=== PATIENT | female | born 1995 | race Caucasian/White ===

== ENCOUNTER 2016-08-06 14:25 | Emergency (ER) | payer MEDICAID, OTHER ==
[~2016-08-06] VITALS: Ht 167.6 cm; Wt 56.0 kg
[~2016-08-06 14:25] MED LIST: ADVA115A INH; DULE200A INH; PULM90IN INH
[2016-08-06] MEDS ORDERED: SODIUM CHLOR 0.9% 1000 ML INJ 1,000 ML IV SCH (14:38)
[2016-08-06 14:40] VITALS: BP 140/96; PULSE 73; RESP 18; TEMP 98.1; O2SAT 100
[2016-08-06] MEDS ORDERED: ONDANSETRON HCL 4 MG/2 ML VIAL IVP ONE ×2 (14:45→16:45)
[2016-08-06] MEDS ORDERED: DICYCLOMINE HCL 10 MG CAP PO ONE (14:45)
[2016-08-06] MEDS ORDERED: FAMOTIDINE 20 MG/2 ML VIAL IV PUSH ONE (14:45)
--- NOTE | 2016-08-06 14:50 | PD ---
HPI Chief Complaint: GI Complaint Time Seen by Provider: 14:34 Travel History International Travel<30 days: No Contact w/Intl Traveler<30days: No History of Present Illness HPI Patient is a 21-year-old female who presents to emergency room with complaints of nausea vomiting diarrhea since 10 AM this morning. Patient reports that she woke up not feeling well, reports that she has not been able to keep any food or fluids down all day. Reports no sick contacts. Denies any recent travels/ trips. Reports that she has not been on any antibiotics recently. Reports that she has increased pain to her epigastrium from vomiting so much. Denies fevers , c/o of chills. Denies cough/congestion. Denies chest pain /sob. PFSH Past Medical History Asthma: Yes Diminished Hearing: No Immunizations Current: Yes : 1 : 1 Past Surgical History Surgical History: No Previous Surgery Social History Alcohol Use: Yes (OCCASIONALLY) Tobacco Use: Yes (1 PPD) Substance Use: Yes (MARIJUANA) Allergies-Medications (Allergen,Severity, Reaction): Coded Allergies: No Known Allergies (Verified , 08/06/16) Reported Meds & Prescriptions Reported Meds & Active Scripts Active Pepcid (Famotidine) 20 Mg Tab 20 Mg PO BID Bentyl (Dicyclomine HCl) 20 Mg Tab 20 Mg PO TID Zofran Odt (Ondansetron Odt) 4 Mg Tab 4 Mg SL Q6HR PRN Famotidine 20 Mg Tab 20 Mg PO BID Bentyl (Dicyclomine HCl) 20 Mg Tab 20 Mg PO TID Zofran Odt (Ondansetron Odt) 4 Mg Tab 4 Mg SL Q6HR PRN Pulmicort Flexhaler (Budesonide Powder Inh) 90 Mcg/Act Inhp 90 Mcg INH Q12HR Advair Hfa 12 GM Inh (Fluticasone-Salmeterol 12 GM Inh) 115-21 Mcg/Act Aer 2 Puff INH BID Reported Dulera 120 Act Inh (Mometasone-Formoterol 120 Act Inh) 200-5 Mcg/Act Inh 2 Puff INH BID Review of Systems General / Constitutional: Positive: Chills, No: Fever Eyes: No: Visual changes HENT: No: Headaches Cardiovascular: No: Chest Pain or Discomfort Respiratory: No: Shortness of Breath Gastrointestinal: Positive: Nausea, Vomiting, Diarrhea, Abdominal Pain, No: Constipation Genitourinary: No: Urgency, Frequency, Dysuria, Pelvic Pain, Flank Pain, Discharge Musculoskeletal: No: Pain Skin: No Rash Neurologic: No: Weakness Psychiatric: No: Depression Endocrine: No: Polydipsia Hematologic/Lymphatic: No: Easy Bruising Physical Exam Narrative GENERAL: mild distress SKIN: Warm and dry. HEAD: Atraumatic. Normocephalic. EYES: Pupils equal and round. No scleral icterus. No injection or drainage. ENT: No nasal bleeding or discharge. Mucous membranes pink and moist. NECK: Trachea midline. No JVD. CARDIOVASCULAR: Regular rate and rhythm. No murmur appreciated. RESPIRATORY: No accessory muscle use. Clear to auscultation. Breath sounds equal bilaterally. GASTROINTESTINAL: Abdomen soft, tenderness to epigastrium, nondistended. Hepatic and splenic margins not palpable. MUSCULOSKELETAL: No obvious deformities. No clubbing. No cyanosis. No edema. NEUROLOGICAL: Awake and alert. No obvious cranial nerve deficits. Motor grossly within normal limits. Normal speech. PSYCHIATRIC: anxious on exam Data Data Last Documented VS Vital Signs Date Time Temp Pulse Resp B/P Pulse Ox O2 Delivery O2 Flow Rate FiO2 08/06/16 17:00 75 16 115/65 98 Room Air 08/06/16 14:40 98.1 Orders Complete Blood Count With Diff (08/06/16 14:38) Comprehensive Metabolic Panel (08/06/16 14:38) Lipase (08/06/16 14:38) Prothrombin Time / Inr (Pt) (08/06/16 14:38) Act Partial Throm Time (Ptt) (08/06/16 14:38) Urinalysis - C+S If Indicated (08/06/16 14:38) Iv Access Insert/Monitor (08/06/16 14:38) Ondansetron Inj (Zofran Inj) (08/06/16 14:45) Sodium Chlor 0.9% 1000 Ml Inj (Ns 1000 M (08/06/16 14:38) Sodium Chloride 0.9% Flush (Ns Flush) (08/06/16 14:45) Famotidine Inj (Pepcid Inj) (08/06/16 14:45) Dicyclomine (Bentyl) (08/06/16 14:45) Ed Urine Pregnancytest Poc (08/06/16 14:38) Influenzae A/B Antigen (08/06/16 14:38) Chest, Single Ap (08/06/16 14:38) Sodium Chlor 0.9% 1000 Ml Inj (Ns 1000 M (08/06/16 15:00) Lorazepam Inj (Ativan Inj) (08/06/16 15:00) Ondansetron Inj (Zofran Inj) (08/06/16 16:45) Ct Abd/Pel W/O Iv Contrast (08/06/16 16:34) Sodium Chlor 0.9% 1000 Ml Inj (Ns 1000 M (08/06/16 17:15) Labs Laboratory Tests Test 08/06/16 08/06/16 08/06/16 15:25 15:45 16:23 White Blood Count 12.7 TH/MM3 Red Blood Count 4.69 MIL/MM3 Hemoglobin 14.9 GM/DL Hematocrit 43.7 % Mean Corpuscular Volume 93.1 FL Mean Corpuscular Hemoglobin 31.7 PG Mean Corpuscular Hemoglobin 34.0 % Concent Red Cell Distribution Width 11.9 % Platelet Count 263 TH/MM3 Mean Platelet Volume 8.2 FL Neutrophils (%) (Auto) 71.5 % Lymphocytes (%) (Auto) 15.2 % Monocytes (%) (Auto) 2.5 % Eosinophils (%) (Auto) 9.2 % Basophils (%) (Auto) 1.6 % Neutrophils # (Auto) 9.1 TH/MM3 Lymphocytes # (Auto) 1.9 TH/MM3 Monocytes # (Auto) 0.3 TH/MM3 Eosinophils # (Auto) 1.2 TH/MM3 Basophils # (Auto) 0.2 TH/MM3 CBC Comment DIFF FINAL Differential Comment Urine Collection Type VOIDED Urine Color YELLOW Urine Turbidity CLEAR Urine pH GREATER/EQUAL 9.0 Urine Specific [place] 1.025 Urine Protein TRACE mg/dL Urine Glucose (UA) NEG mg/dL Urine Ketones 80 OR GREATER mg/dL Urine Occult Blood NEG Urine Nitrite NEG Urine Bilirubin NEG Urine Leukocyte Esterase NEG Urine WBC 3-5 /hpf Urine Squamous Epithelial 0-5 /hpf Cells Urine Mucus RARE /lpf Microscopic Urinalysis Comment CULT NOT INDICATED Prothrombin Time 12.0 SEC Prothromb Time International 1.1 RATIO Ratio Activated Partial 23.0 SEC Thromboplast Time Sodium Level 145 MEQ/L Potassium Level 3.6 MEQ/L Chloride Level 112 MEQ/L Carbon Dioxide Level 22.4 MEQ/L Anion Gap 11 MEQ/L Blood Urea Nitrogen 12 MG/DL Creatinine 0.66 MG/DL Estimat Glomerular Filtration 112 ML/MIN Rate Random Glucose 107 MG/DL Calcium Level 9.0 MG/DL Total Bilirubin 0.5 MG/DL Aspartate Amino Transf 13 U/L (AST/SGOT) Alanine Aminotransferase 18 U/L (ALT/SGPT) Alkaline Phosphatase 44 U/L Total Protein 7.4 GM/DL Albumin 4.0 GM/DL Lipase 109 U/L MDM Medical Decision Making Medical Screen Exam Complete: Yes Emergency Medical Condition: Yes Interpretation(s) Vital Signs Date Time Temp Pulse Resp B/P Pulse Ox O2 Delivery O2 Flow Rate FiO2 08/06/16 17:00 75 16 115/65 98 Room Air 08/06/16 16:00 16 08/06/16 15:30 80 16 101/72 99 Room Air 08/06/16 14:50 16 08/06/16 14:40 98.1 73 18 140/96 100 Differential Diagnosis Gastritis, gastroenteritis, cholecystitis, peptic ulcer disease, viral syndrome , electrolyte abnormality Narrative Course Patient is a 21-year-old female who presents to emergency room with complaints of nausea vomiting and diarrhea since this 10 AM morning. Reports that she has been feeling sick all morning, reports that she is unable to drink any fluids at this time. Reports that she has increased pain to her epigastrium from vomiting so much. Patient denies any recent travels or sick contacts. On evaluation, patient is very anxious on exam, patient is nauseous and dry heaving. Patient was placed on a nursing coordinator. IV fluids ordered, antiemetics ordered, labs as well as x-ray chest ordered. Will continue to monitor patient. Patient reevaluated, patient reports that she is feeling much better. Patient with no abdominal pain at this time, abdomen is soft, nontender, nondistended, no peritoneal signs. Patient with most likely a gastroenteritis. CBC & BMP Diagram 08/06/16 15:25 08/06/16 16:23 Last Impressions Abdomen/Pelvis CT 08/06/16 1634 Signed Impressions: Service Date/Time: Saturday, August 06, 2016 17:30 - CONCLUSION: 1. Visualization of anatomic structures in the deep pelvis is somewhat limited due to the lack of IV and oral contrast. 2. Tubular shaped, fluid filled structures in the right adnexal region likely represent normal small bowel as the appear contiguous with regional bowel structures on the coronal reconstructions. 3. Nonvisualization of the appendix. No inflammatory changes identified in the right lower abdominal quadrant, however. 4. Probable follicular type cyst in the left ovary. 5. Stable, benign-appearing parapelvic cyst in the mid to upper pole of left kidney. Yo Cortes MD Chest X-Ray 08/06/16 0198 Signed Impressions: Service Date/Time: Saturday, August 06, 2016 14:52 - CONCLUSION: No acute disease. Mark Kruger MD Patient reevaluated, patient reports that she is feeling much better at this time. Patient will follow-up with primary care doctor. Patient was given a copy of her studies at discharge. All incidental findings reviewed with her. Signs and symptoms of when to return to the emergency room was reviewed with patient in detail. Patient understands need to follow-up with her primary care doctor within 24 hours Diagnosis Primary Impression: Nausea vomiting and diarrhea Additional Impression: Dehydration Patient Instructions: Clear Liquid Diet (ED), General Instructions Departure Forms: Tests/Procedures, Work Release Enter return to work date: Aug 07, 2016 Additional Instructions: Please provide patient with a copy of her lab work and studies at discharge Please follow-up with your primary care doctor and 1-2 days Return to emergency room immediately if symptoms return or worsen Please drink plenty of fluids Please bring your discharge instructions as well as your lab work to doctor's office for follow-up on all studies from today Med/Other Pt SpecificInfo: Prescription(s) given Scripts Famotidine (Pepcid)20 Mg Tab20 Mg PO BID #30 TAB Ref 0 Prov:Tiffany Murry DO 08/06/16 Dicyclomine (Bentyl)20 Mg Tab20 Mg PO TID #30 TAB Ref 0 Prov:Tiffany Murry DO 08/06/16 Ondansetron Odt (Zofran Odt)4 Mg Tab4 Mg SL Q6HR PRN (Nausea/Vomiting) #30 TAB Ref 0 Prov:Tiffany Murry DO 08/06/16 Famotidine 20 Mg Tab20 Mg PO BID #60 TAB Ref 0 Prov:Tiffany Murry DO 08/06/16 Dicyclomine (Bentyl)20 Mg Tab20 Mg PO TID #30 TAB Ref 0 Prov:Tiffany Murry DO 08/06/16 Ondansetron Odt (Zofran Odt)4 Mg Tab4 Mg SL Q6HR PRN (Nausea/Vomiting) #30 TAB Ref 0 Prov:Tiffany Murry DO 08/06/16 Disposition: 01 DISCHARGE HOME Condition: Stable Tiffany Murry DO Aug 06, 2016 14:50
[2016-08-06] MEDS ORDERED: SODIUM CHLOR 0.9% 1000 ML INJ 1,000 ML IV ONE ×2 (15:00→17:15)
[2016-08-06] MEDS ORDERED: LORazepam 2 MG/ML VIAL IV PUSH ONE (15:00)
--- NOTE | 2016-08-06 15:04 | RADHPO ---
EXAM DATE/TIME: 08/06/2016 14:52 [facility] COMPARISON: CHEST PA & LAT, June 08, 2014, 13:42. INDICATIONS : Vomiting today. MEDICAL HISTORY : Asthma. SURGICAL HISTORY : None. ENCOUNTER: Initial ACUITY: 1 day PAIN SCORE: 0/10 LOCATION: Bilateral chest FINDINGS: A single view of the chest demonstrates the lungs to be symmetrically aerated without evidence of mas s, infiltrate or effusion. The cardiomediastinal contours are unremarkable. Osseous structures are intact. CONCLUSION: No acute disease. Mark Kruger MD on August 06, 2016 at 15:02 Board Certified Radiologist. This report was verified electronically.
[2016-08-06 15:30] VITALS: BP 101/72; PULSE 80; RESP 16; O2SAT 99
[2016-08-06 15:31] LABS: AUTOMATED NEUTROPHIL # 9.1 TH/MM3 (1.8-7.7); BASOPHIL # 0.2 TH/MM3 (0-0.2); BASOPHIL % 1.6 % (0.0-2.0); EOSINOPHIL # 1.2 TH/MM3 (0-0.4); EOSINOPHIL % 9.2 % (0.0-4.0); HEMATOCRIT 43.7 % (35.0-46.0); HEMO FLAGS DIFF FINAL; LYMPH % 15.2 % (9.0-44.0); LYMPHOCYTE # 1.9 TH/MM3 (1.0-4.8); MEAN CELL VOLUME 93.1 FL (80.0-100.0); MEAN CORPUSCULAR HEMOGLOBIN 31.7 PG (27.0-34.0); MONO % 2.5 % (0.0-8.0); NEUT % 71.5 % (16.0-70.0); PLATELET COUNT 263 TH/MM3 (150-450); RED BLOOD COUNT 4.69 MIL/MM3 (4.00-5.30); RED CELL DISTRIBUTION WIDTH 11.9 % (11.6-17.2); WHITE BLOOD COUNT 12.7 TH/MM3 (4.0-11.0)
[2016-08-06] MEDS: SODIUM CHLORIDE 0.9% FLUSH 5 ML FLUSH IVF PRN ×4 (15:37→18:37)
[2016-08-06 16:22] LABS: BLOOD, URINE NEG (NEG); GLUCOSE,URINE NEG (NEG); NITRITE,URINE NEG (NEG)
[2016-08-06 16:27] LABS: KETONE, URINE 80 OR GREATER mg/dL (NEG); PH, URINE GREATER/EQUAL 9.0 (5.0-8.5)
[2016-08-06 16:46] LABS: METHOD OF COLLECTION VOIDED; URINE COLOR YELLOW (YELLW/STRAW)
[2016-08-06 16:49] LABS: MUCUS URINE RARE /lpf (OCC)
[2016-08-06 16:50] LABS: COMMENT (UR) CULT NOT INDICATED; CULTURE IF INDICATED CULT NOT INDICATED; SQUAMOUS EPITHELIAL CELL URINE 0-5 /hpf (0-5)
[2016-08-06 16:52] LABS: CHLORIDE 112 MEQ/L (98-107); POTASSIUM 3.6 MEQ/L (3.5-5.1); SODIUM (NA) 145 MEQ/L (136-145)
[2016-08-06 16:56] LABS: ANION GAP 11 MEQ/L (5-15); BICARBONATE 22.4 MEQ/L (21.0-32.0); BLOOD UREA NITROGEN 12 MG/DL (7-18); INTERNATIONAL NORMALIZED RATIO 1.1 RATIO
[2016-08-06 16:59] LABS: ALT (GPT) 18 U/L (10-53); AST (GOT) 13 U/L (15-37); GLOMERULAR FILTRATION RATE 112 ML/MIN (>89)
[2016-08-06] MEDS ORDERED: BENT20TA PO ×2 (16:59→18:16)
[2016-08-06] MEDS ORDERED: ZOFR4TAB3 SL ×2 (16:59→18:16)
[2016-08-06 17:00] VITALS: BP 115/65; PULSE 75; RESP 16; O2SAT 98
[2016-08-06 17:00] LABS: TOTAL BILIRUBIN ADULT 0.5 MG/DL (0.2-1.0)
[2016-08-06] MEDS ORDERED: FAMO20TA2 PO (17:00)
[2016-08-06 17:02] LABS: ALKALINE PHOSPHATASE 44 U/L (45-117)
--- NOTE | 2016-08-06 17:59 | RADHPO ---
EXAM DATE/TIME: 08/06/2016 17:30 [facility] COMPARISON: CT ABDOMEN & PELVIS W CONTRAST, September 24, 2012, 14:33. INDICATIONS : Nausea and vomiting. ORAL CONTRAST: No oral contrast ingested. RADIATION DOSE: 5.32 CTDIvol (mGy) MEDICAL HISTORY : None SURGICAL HISTORY : None. ENCOUNTER: Initial ACUITY: 1 day PAIN SCALE: 0/10 LOCATION: upper quadrant TECHNIQUE: Volumetric scanning of the abdomen and pelvis was performed. Using automated exposure control and ad justment of the mA and/or kV according to patient size, radiation dose was kept as low as reasonably achievable to obtain optimal diagnostic quality images. FINDINGS: LOWER LUNGS: The visualized lower lungs are clear. LIVER: Homogeneous density without lesion. There is no dilation of the biliary tree. No calcified gallston es. SPLEEN: Normal size without lesion. PANCREAS: Within normal limits. KIDNEYS: Normal in size and shape. There is no mass, stone, or hydronephrosis. Focal hypodensity in the super ior/mid pole of the left kidney was clearly a benign cyst on the prior contrasted study ADRENAL GLANDS: Within normal limits. VASCULAR: There is no aortic aneurysm. BOWEL/MESENTERY: The stomach, small bowel, and colon demonstrate no acute abnormality. There is no free intraperitone al air or fluid. Vermiform appendix is not clearly identified on this noncontrasted study. ABDOMINAL WALL: Within normal limits. RETROPERITONEUM: There is no lymphadenopathy. BLADDER: No wall thickening or mass. REPRODUCTIVE: Within normal limits. Fluid-filled tubular structures in the right adnexal region I believe represent the normal noncontrasted bowel. Probable follicular cyst in left ovary.INGUINAL: There is no lymphadenopathy or hernia. MUSCULOSKELETAL: Mild S-shaped scoliosis of the thoracolumbar spine. CONCLUSION: 1. Visualization of anatomic structures in the deep pelvis is somewhat limited due to the lack of IV and oral contrast. 2. Tubular shaped, fluid filled structures in the right adnexal region likely represent normal small bowel as the appear contiguous with regional bowel structures on the coronal reconstructions. 3. Nonvisualization of the appendix. No inflammatory changes identified in the right lower abdominal quadrant, however. 4. Probable follicular type cyst in the left ovary. 5. Stable, benign-appearing parapelvic cyst in the mid to upper pole of left kidney. Yo Cortes MD on August 06, 2016 at 17:49 Board Certified Radiologist. This report was verified electronically.
[2016-08-06] MEDS ORDERED: FAMO1TAB37 PO (18:16)
[2016-08-06 18:30] VITALS: BP 116/68; PULSE 78; RESP 16; O2SAT 100
[2016-08-06 19:15] VITALS: BP 116/66; PULSE 62; RESP 16; O2SAT 100
[2016-08-06 20:30] VITALS: BP 118/68; PULSE 62; RESP 16; O2SAT 100
[2016-12-18] MEDS ORDERED: DULE200A INH ×2 (15:30→15:31)
== END 2016-08-06 20:38 | disposition home or self-care (01) ==
LOC: PHED 14:25
DX: R11.2 Nausea with vomiting, unspecified (principal); R19.7 Diarrhea, unspecified; E86.0 Dehydration; J45.909 Unspecified asthma, uncomplicated; F17.210 Nicotine dependence, cigarettes, uncomplicated; F12.90 Cannabis use, unspecified, uncomplicated
CPT/HCPCS: 71010; 74176; 80053; 81001; 83690; 84703; 85025; 85610; 85730; 87804; 96361; 96374; 96375; 96376; 99284; J2060; J2405; J7030

== ENCOUNTER 2016-12-07 15:25 | Emergency (ER) | payer OTHER ==
[~2016-12-07] VITALS: Ht 167.6 cm; Wt 49.6 kg
[~2016-12-07 15:25] MED LIST changes: -PULM90IN INH
[2016-12-07 15:28] VITALS: BP 145/87; PULSE 54; RESP 16; TEMP 98.6; O2SAT 98
[2016-12-07] MEDS ORDERED: SODIUM CHLOR 0.9% 1000 ML INJ 1,000 ML IV ONE (15:36)
[2016-12-07] MEDS ORDERED: DICY20TA10 PO (15:41)
[2016-12-07] MEDS ORDERED: FAMO20TA2 PO (15:41)
--- NOTE | 2016-12-07 15:42 | PD ---
HPI Chief Complaint: GI Complaint Time Seen by Provider: 15:37 Travel History International Travel<30 days: No Contact w/Intl Traveler<30days: No Traveled to known affect area: No History of Present Illness HPI C/O N/V/D FOR LAST 4 DAYS NOT IMPROVING, DENIES FEVER, SHE IS CURRENTLY ABLE TO TOLERATE PO PFSH Past Medical History Asthma: Yes Diminished Hearing: No Respiratory: Yes (asthma) Immunizations Current: Yes ?: Not LMP: TODAY : 1 : 1 Social History Alcohol Use: Yes (OCCASIONALLY) Tobacco Use: Yes (1 PPD) Substance Use: Yes (MARIJUANA, lortabs) Allergies-Medications (Allergen,Severity, Reaction): Coded Allergies: No Known Allergies (Verified , 12/07/16) Reported Meds & Prescriptions Reported Meds & Active Scripts Active Reported Dicyclomine (Dicyclomine HCl) 20 Mg Tab 20 Mg PO ONCE Famotidine 20 Mg Tab 20 Mg PO ONCE Dulera 120 Act Inh (Mometasone-Formoterol 120 Act Inh) 200-5 Mcg/Act Inh 2 Puff INH BID Review of Systems Except as stated in HPI: all other systems reviewed are Neg Gastrointestinal: Positive: Nausea, Vomiting, Diarrhea Physical Exam Narrative GENERAL: SKIN: Warm and dry. HEAD: Atraumatic. Normocephalic. EYES: Pupils equal and round. No scleral icterus. No injection or drainage. ENT: No nasal bleeding or discharge. Mucous membranes pink and moist. NECK: Trachea midline. No JVD. CARDIOVASCULAR: Regular rate and rhythm. RESPIRATORY: No accessory muscle use. Clear to auscultation. Breath sounds equal bilaterally. GASTROINTESTINAL: Abdomen soft, non-tender, nondistended. Hepatic and splenic margins not palpable. MUSCULOSKELETAL: Extremities without clubbing, cyanosis, or edema. No obvious deformities. NEUROLOGICAL: Awake and alert. No obvious cranial nerve deficits. Motor grossly within normal limits. Five out of 5 muscle strength in the arms and legs. Normal speech. PSYCHIATRIC: Appropriate mood and affect; insight and judgment normal. Data Data Last Documented VS Vital Signs Date Time Temp Pulse Resp B/P Pulse Ox O2 Delivery O2 Flow Rate FiO2 12/07/16 16:16 16 100 Room Air 12/07/16 16:14 60 131/77 12/07/16 15:28 98.6 Orders Complete Blood Count With Diff (12/07/16 15:36) Basic Metabolic Panel (Bmp) (12/07/16 15:36) Urinalysis - C+S If Indicated (12/07/16 15:36) Iv Access Insert/Monitor (12/07/16 15:36) Sodium Chlor 0.9% 1000 Ml Inj (Ns 1000 M (12/07/16 15:36) Sodium Chloride 0.9% Flush (Ns Flush) (12/07/16 15:45) Ed Urine Pregnancytest Poc (12/07/16 15:36) Prochlorperazine Inj (Compazine Inj) (12/07/16 15:45) Diphenhydramine Inj (Benadryl Inj) (12/07/16 15:45) Lipase (12/07/16 15:39) Ecg Monitoring (12/07/16 15:39) Oximetry (12/07/16 15:39) Sodium Chloride 0.9% Flush (Ns Flush) (12/07/16 15:45) Labs Laboratory Tests Test 12/07/16 12/07/16 15:50 16:00 Urine Collection Type CLEAN CATCH Urine Color YELLOW Urine Turbidity CLEAR Urine pH 6.0 Urine Specific [place] 1.028 Urine Protein 30 mg/dL Urine Glucose (UA) NEG mg/dL Urine Ketones NEG mg/dL Urine Occult Blood LARGE Urine Nitrite NEG Urine Bilirubin NEG Urine Leukocyte Esterase NEG Urine RBC 15-19 /hpf Urine WBC 0-2 /hpf Urine Squamous Epithelial 6-8 /hpf Cells Urine Bacteria OCC /hpf Urine Mucus MOD /lpf Microscopic Urinalysis Comment CULT NOT INDICATED Urine Collection Time 15:50 White Blood Count 9.6 TH/MM3 Red Blood Count 4.74 MIL/MM3 Hemoglobin 15.1 GM/DL Hematocrit 44.9 % Mean Corpuscular Volume 94.8 FL Mean Corpuscular Hemoglobin 32.0 PG Mean Corpuscular Hemoglobin 33.8 % Concent Red Cell Distribution Width 12.0 % Platelet Count 299 TH/MM3 Mean Platelet Volume 7.9 FL Neutrophils (%) (Auto) 62.3 % Lymphocytes (%) (Auto) 30.2 % Monocytes (%) (Auto) 6.1 % Eosinophils (%) (Auto) 0.7 % Basophils (%) (Auto) 0.7 % Neutrophils # (Auto) 5.9 TH/MM3 Lymphocytes # (Auto) 2.9 TH/MM3 Monocytes # (Auto) 0.6 TH/MM3 Eosinophils # (Auto) 0.1 TH/MM3 Basophils # (Auto) 0.1 TH/MM3 CBC Comment DIFF FINAL Differential Comment Sodium Level 138 MEQ/L Potassium Level 3.1 MEQ/L Chloride Level 103 MEQ/L Carbon Dioxide Level 26.2 MEQ/L Anion Gap 9 MEQ/L Blood Urea Nitrogen 16 MG/DL Creatinine 0.83 MG/DL Estimat Glomerular Filtration 86 ML/MIN Rate Random Glucose 101 MG/DL Calcium Level 9.1 MG/DL Lipase 204 U/L [facility] Medical Decision Making Medical Screen Exam Complete: Yes Emergency Medical Condition: Yes Medical Record Reviewed: Yes Differential Diagnosis BACTERIAL VS VIRAL ENTERITIS, EVAL FOR KIDNEY/PANCREAS DYSFUNCTION Narrative Course BASED ON REVIEW OF LABS, UTI IS PRESENT, ENTERITIS IS LIKELY VIRAL IN NATURE SO WILL TREAT SYMPTOMATICALLY Diagnosis Primary Impression: UTI (urinary tract infection) Qualified Code: N30.00 - Acute cystitis without hematuria Additional Impression: Viral gastroenteritis Scripts Ondansetron Odt (Zofran Odt)4 Mg Tab4 Mg SL Q6HR PRN (Nausea/Vomiting) #20 TAB Ref 0 Prov:Brayan Holman MD 12/07/16 Diphenoxylate-Atropine (Lomotil)2.5-0.025 Mg Tab1 Tab PO Q6H PRN (DIARRHEA) #20 TAB Ref 0 Prov:Brayan Holman MD 12/07/16 Ciprofloxacin 500 Mg [id number] Mg PO BID #14 TAB Ref 0 Prov:Brayan Holman MD 12/07/16 Disposition: 01 DISCHARGE HOME Condition: Stable Brayan Holman MD Dec 07, 2016 15:42
[2016-12-07] MEDS ORDERED: SODIUM CHLORIDE 0.9% FLUSH 10 ML FLUSH IVF PRN (15:45)
[2016-12-07] MEDS ORDERED: PROCHLORPERAZINE INJ 10 MG/2 ML VIAL IV PUSH ONE (15:45)
[2016-12-07] MEDS ORDERED: SODIUM CHLORIDE 0.9% FLUSH 10 ML FLUSH IV FLUSH PRN (15:45)
[2016-12-07] MEDS ORDERED: diphenhydrAMINE HCL 50 MG/ML VIAL IV PUSH ONE (15:45)
[2016-12-07 16:13] LABS: AUTOMATED NEUTROPHIL # 5.9 TH/MM3 (1.8-7.7); BASOPHIL # 0.1 TH/MM3 (0-0.2); BASOPHIL % 0.7 % (0.0-2.0); EOSINOPHIL # 0.1 TH/MM3 (0-0.4); EOSINOPHIL % 0.7 % (0.0-4.0); HEMATOCRIT 44.9 % (35.0-46.0); HEMO FLAGS DIFF FINAL; LYMPH % 30.2 % (9.0-44.0); LYMPHOCYTE # 2.9 TH/MM3 (1.0-4.8); MEAN CELL VOLUME 94.8 FL (80.0-100.0); MEAN CORPUSCULAR HGB CONC 33.8 % (32.0-36.0); MONO % 6.1 % (0.0-8.0); NEUT % 62.3 % (16.0-70.0); PLATELET COUNT 299 TH/MM3 (150-450); RED BLOOD COUNT 4.74 MIL/MM3 (4.00-5.30); WHITE BLOOD COUNT 9.6 TH/MM3 (4.0-11.0)
[2016-12-07 16:13] LABS: BLOOD, URINE LARGE (NEG); GLUCOSE,URINE NEG (NEG); KETONE, URINE NEG (NEG); NITRITE,URINE NEG (NEG)
[2016-12-07 16:14] VITALS: BP 131/77; PULSE 60; RESP 16; O2SAT 100
[2016-12-07 16:16] VITALS: RESP 16; O2SAT 100
[2016-12-07 16:23] LABS: METHOD OF COLLECTION CLEAN CATCH; URINE COLOR YELLOW (YELLW/STRAW)
[2016-12-07 16:23] LABS: POTASSIUM 3.1 MEQ/L (3.5-5.1)
[2016-12-07 16:24] LABS: BACTERIA, URINE OCC /hpf; COMMENT (UR) CULT NOT INDICATED; CULTURE IF INDICATED CULT NOT INDICATED; MUCUS URINE MOD /lpf (OCC); RBC, URINE 15-19 /hpf (0-3); WBC, URINE 0-2 /hpf (0-5)
[2016-12-07 16:26] LABS: BICARBONATE 26.2 MEQ/L (21.0-32.0)
[2016-12-07] MEDS ORDERED: ZOFR4TAB3 SL (16:37)
[2016-12-07] MEDS ORDERED: LOMO2.5T PO (16:37)
[2016-12-07] MEDS ORDERED: CIPR500T2 PO (16:37)
[2016-12-18] MEDS ORDERED: DULE200A INH ×2 (15:30→15:31)
[2016-12-23] MEDS ORDERED: NITR100C4 PO (12:17)
[2016-12-23] MEDS ORDERED: MICOCRE VAGINAL (12:19)
== END 2016-12-07 17:03 | disposition home or self-care (01) ==
LOC: PHED 15:25
DX: N30.00 Acute cystitis without hematuria (principal); A08.4 Viral intestinal infection, unspecified
CPT/HCPCS: 80048; 81001; 83690; 84703; 85025; 96374; 96375; 99284; J0780; J1200; J7030

== ENCOUNTER 2017-01-26 18:17 | Emergency (ER) | payer SELFPAY ==
[~2017-01-26] VITALS: Ht 165.1 cm; Wt 53.2 kg
[~2017-01-26 18:17] MED LIST changes: -ADVA115A INH; +DICY20TA10 PO; +FAMO20TA2 PO; +MICOCRE VAGINAL; +NITR100C4 PO; +ZOFR4TAB3 SL
[2017-01-26 18:21] VITALS: BP 144/64; PULSE 65; RESP 16; TEMP 98.2; O2SAT 97
[2017-01-26 18:50] LABS: BLOOD, URINE LARGE (NEG); GLUCOSE,URINE NEG (NEG); KETONE, URINE NEG (NEG); NITRITE,URINE NEG (NEG)
--- NOTE | 2017-01-26 18:55 | PD ---
HPI Chief Complaint: Complaint Time Seen by Provider: 18:34 Travel History International Travel<30 days: No Contact w/Intl Traveler<30days: No Traveled to known affect area: No History of Present Illness HPI C/O SUPRAPUBIC DISCOMFORT, PRESSURE SOMETIMES SHARP, NONRADIATING, 5/10, NO ALLEVIATING/AGGRAVATING FACTORS...DENIES VAG D/C PFSH Past Medical History Asthma: Yes Diminished Hearing: No Respiratory: Yes (asthma) Immunizations Current: Yes ?: Not LMP: 01/26/17 : 1 : 1 Social History Alcohol Use: Yes (OCCASIONALLY) Tobacco Use: Yes (1/2 PPD) Substance Use: Yes (MARIJUANA, lortabs) Allergies-Medications (Allergen,Severity, Reaction): Coded Allergies: No Known Allergies (Verified , 01/26/17) Reported Meds & Prescriptions Reported Meds & Active Scripts Active Dulera 120 Act Inh (Mometasone-Formoterol 120 Act Inh) 200-5 Mcg/Act Inh 2 Puff INH BID Review of Systems Except as stated in HPI: all other systems reviewed are Neg Gastrointestinal: Positive: Abdominal Pain Genitourinary: Positive: Urgency, Frequency Physical Exam Narrative GENERAL: SKIN: Warm and dry. HEAD: Atraumatic. Normocephalic. EYES: Pupils equal and round. No scleral icterus. No injection or drainage. ENT: No nasal bleeding or discharge. Mucous membranes pink and moist. NECK: Trachea midline. No JVD. CARDIOVASCULAR: Regular rate and rhythm. RESPIRATORY: No accessory muscle use. Clear to auscultation. Breath sounds equal bilaterally. GASTROINTESTINAL: Abdomen soft, MILD SUPRAPUBIC TTP, nondistended. MUSCULOSKELETAL: Extremities without clubbing, cyanosis, or edema. No obvious deformities. NEUROLOGICAL: Awake and alert. No obvious cranial nerve deficits. Motor grossly within normal limits. Five out of 5 muscle strength in the arms and legs. Normal speech. PSYCHIATRIC: Appropriate mood and affect; insight and judgment normal. Data Data Last Documented VS Vital Signs Date Time Temp Pulse Resp B/P Pulse Ox O2 Delivery O2 Flow Rate FiO2 01/26/17 18:21 98.2 65 16 144/64 97 Orders Urinalysis - C+S If Indicated (01/26/17 18:34) Ct Abd/Pel W/O Iv Contrast (01/26/17 18:34) Ed Urine Pregnancytest Poc (01/26/17 18:34) Labs Laboratory Tests Test 01/26/17 18:35 Urine Color YELLOW Urine Turbidity SLIGHT Urine pH 6.0 Urine Specific [place] 1.012 Urine Protein NEG mg/dL Urine Glucose (UA) NEG mg/dL Urine Ketones NEG mg/dL Urine Occult Blood LARGE Urine Nitrite NEG Urine Bilirubin NEG Urine Leukocyte Esterase NEG Urine RBC 20-24 /hpf Urine Squamous Epithelial 0-5 /hpf Cells Urine Mucus OCC /lpf Microscopic Urinalysis Comment CULT NOT INDICATED MDM Medical Decision Making Medical Screen Exam Complete: Yes Emergency Medical Condition: Yes Medical Record Reviewed: Yes Differential Diagnosis ?UTI V BLADDER SPASMS V DIVERTIC Narrative Course UA NOTED HEMATURIA BUT WITHOUT WBC'S OR BACTERIA, NON AND CT NEG FOR DIVERTIC/COLITIS ETC PATIENT WILL BE D/C HOME ON NO ABX Diagnosis Primary Impression: Unspecified abdominal pain Qualified Code: R10.9 - Abdominal pain, unspecified abdominal location Referrals: [facility] FOR ANY FURTHER TESTING THAT YOU MAY REQUIRE Patient Instructions: General Instructions Scripts Tramadol (Ultram)50 Mg Tab50 Mg PO Q4H PRN (PAIN) #10 TAB Prov:Brayan Holman MD 01/26/17 Disposition: 01 DISCHARGE HOME Condition: Stable Brayan Holman MD Jan 26, 2017 18:55
[2017-01-26 18:57] LABS: URINE COLOR YELLOW (YELLW/STRAW)
[2017-01-26 18:58] LABS: MUCUS URINE OCC /lpf (OCC); SQUAMOUS EPITHELIAL CELL URINE 0-5 /hpf (0-5)
[2017-01-26 18:59] LABS: COMMENT (UR) CULT NOT INDICATED; CULTURE IF INDICATED CULT NOT INDICATED
--- NOTE | 2017-01-26 19:37 | RADRPT ---
EXAM DATE/TIME: 01/26/2017 18:58 [facility] COMPARISON: No previous studies available for comparison. INDICATIONS : Urinary tract infection for one month. Bilateral kidney pain. ORAL CONTRAST: No oral contrast ingested. RADIATION DOSE: 5.02 CTDIvol (mGy) MEDICAL HISTORY : None SURGICAL HISTORY : None. ENCOUNTER: Initial ACUITY: 1 month PAIN SCALE: 4/10 LOCATION: Bilateral flank TECHNIQUE: Volumetric scanning of the abdomen and pelvis was performed. Using automated exposure control and ad justment of the mA and/or kV according to patient size, radiation dose was kept as low as reasonably achievable to obtain optimal diagnostic quality images. DICOM format image data is available electro nically for review and comparison. FINDINGS: Visualized lung bases clear except for minimal right basilar scarring. No acute findings in the visualized liver, spleen, adrenals, kidneys or pancreas. Previous left parap elvic cyst not as well-visualized on today's exam. No hydronephrosis. No renal calculi identified. Mild constipation. No bowel obstruction, free air or free fluid. No acute bony abnormalities. CONCLUSION: 1. No acute findings. Mild constipation. Specifically no renal calculi or evidence for obstructive ur opathy. Tariq Bassett MD on January 26, 2017 at 19:29 Board Certified Radiologist. This report was verified electronically.
[2017-01-26] MEDS ORDERED: ULTR50TA5 PO (19:44)
[2017-01-26 20:26] VITALS: BP 134/78
== END 2017-01-26 20:28 | disposition home or self-care (01) ==
LOC: PHED 18:17
DX: R10.9 Unspecified abdominal pain (principal); F17.210 Nicotine dependence, cigarettes, uncomplicated; F12.90 Cannabis use, unspecified, uncomplicated
CPT/HCPCS: 74176; 81001; 84703

== ENCOUNTER 2017-08-19 11:57 | Emergency (ER) | payer SELFPAY ==
[~2017-08-19] VITALS: Ht 167.6 cm; Wt 55.9 kg
[~2017-08-19 11:57] MED LIST changes: -DICY20TA10 PO; -FAMO20TA2 PO; -MICOCRE VAGINAL; -NITR100C4 PO; -ZOFR4TAB3 SL
[2017-08-19 12:03] VITALS: BP 149/62; PULSE 62; RESP 18; TEMP 97.5; O2SAT 100
--- NOTE | 2017-08-19 12:47 | PD ---
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 She is having some vaginal bleeding. She has had 3 periods this month. She says she normally has 2 periods. She does not know if she is . She says that since she had a urinary tract infection she has not been urinating properly. No fever or chills. There has not been any vomiting or diarrhea PFS Past Medical History Asthma: Yes Diminished Hearing: No Respiratory: Yes (ASTHMA) Immunizations Current: Yes Tetanus Vaccination: Never Vaccinated Influenza Vaccination: No ?: Unknown LMP: IRREGULAR : 1 : 1 Past Surgical History Surgical History: No Previous Surgery Social History Alcohol Use: Yes (OCCASIONALLY) Tobacco Use: Yes (1/2 PPD) Substance Use: Yes (MARIJUANA, lortabs) Allergies-Medications (Allergen,Severity, Reaction): Coded Allergies: No Known Allergies (Verified Adverse Reaction, Unknown, 08/19/17) Reported Meds & Prescriptions Reported Meds & Active Scripts Active Dulera 120 Act Inh (Mometasone-Formoterol 120 Act Inh) 200-5 Mcg/Act Inh 2 Puff INH BID Review of Systems Except as stated in HPI: all other systems reviewed are Neg General / Constitutional: No: Fever, Chills Eyes: No: Diploplia HENT: No: Headaches, Lightheadedness Cardiovascular: No: Chest Pain or Discomfort, Palpitations Respiratory: No: Cough, Shortness of Breath Gastrointestinal: Positive: Abdominal Pain Genitourinary: Positive: Vaginal Bleeding Musculoskeletal: No: Myalgias, Arthralgias Neurologic: No: Weakness Endocrine: No: Heat Intolerance, Cold Intolerance Hematologic/Lymphatic: No: Easy Bruising Physical Exam Narrative GENERAL: Well-developed female SKIN: Focused skin assessment warm/dry. HEAD: Atraumatic. Normocephalic. EYES: Pupils equal and round. No scleral icterus. No injection or drainage. ENT: No nasal bleeding or discharge. Mucous membranes pink and moist. NECK: Trachea midline. No JVD. CARDIOVASCULAR: Regular rate and rhythm. No murmur appreciated. RESPIRATORY: No accessory muscle use. Clear to auscultation. Breath sounds equal bilaterally. GASTROINTESTINAL: Abdomen soft, mild tenderness across the upper abdomen without guarding, nondistended. Hepatic and splenic margins not palpable. Pelvic: There is bleeding from the cervical loss. The office is closed. The uterus is not enlarged. There is no discharge noted MUSCULOSKELETAL: No obvious deformities. No clubbing. No cyanosis. No edema. NEUROLOGICAL: Awake and alert. No obvious cranial nerve deficits. Motor grossly within normal limits. Normal speech. PSYCHIATRIC: Appropriate mood and affect; insight and judgment normal. Data Data Last Documented VS Vital Signs Date Time Temp Pulse Resp B/P (MAP) Pulse Ox O2 Delivery O2 Flow Rate FiO2 08/19/17 12:03 97.5 62 18 149/62 (91) 100 Orders Orders Beta Hcg (Quant/Titer) (08/19/17 12:29) Complete Blood Count With Diff (08/19/17 12:29) Comprehensive Metabolic Panel (08/19/17 12:29) Gc And Chlamydia Pcr (08/19/17 12:29) Urinalysis - C+S If Indicated (08/19/17 12:29) Labs Laboratory Tests Test 08/19/17 12:30 08/19/17 12:41 Urine Collection Type CLEAN CATCH Urine Color YELLOW Urine Turbidity SLIGHT Urine pH 5.5 Urine Specific [place] 1.016 Urine Protein NEG mg/dL Urine Glucose (UA) NEG mg/dL Urine Ketones NEG mg/dL Urine Occult Blood LARGE Urine Nitrite NEG Urine Bilirubin NEG Urine Leukocyte Esterase NEG Urine RBC 4-9 /hpf Urine Squamous Epithelial Cells > 8 /hpf Urine Amorphous Sediment LARGE Microscopic Urinalysis Comment CULT NOT INDICATED Urine Collection Time 1230 White Blood Count 5.1 TH/MM3 Red Blood Count 4.23 MIL/MM3 Hemoglobin 13.6 GM/DL Hematocrit 40.0 % Mean Corpuscular Volume 94.5 FL Mean Corpuscular Hemoglobin 32.1 PG Mean Corpuscular Hemoglobin Concent 34.0 % Red Cell Distribution Width 11.5 % Platelet Count 213 TH/MM3 Mean Platelet Volume 8.4 FL Neutrophils (%) (Auto) 45.3 % Lymphocytes (%) (Auto) 35.3 % Monocytes (%) (Auto) 8.3 % Eosinophils (%) (Auto) 9.5 % Basophils (%) (Auto) 1.6 % Neutrophils # (Auto) 2.3 TH/MM3 Lymphocytes # (Auto) 1.8 TH/MM3 Monocytes # (Auto) 0.4 TH/MM3 Eosinophils # (Auto) 0.5 TH/MM3 Basophils # (Auto) 0.1 TH/MM3 CBC Comment DIFF FINAL Differential Comment Blood Urea Nitrogen 11 MG/DL Creatinine 0.66 MG/DL Random Glucose 89 MG/DL Total Protein 7.3 GM/DL Albumin 3.8 GM/DL Calcium Level 8.0 MG/DL Alkaline Phosphatase 49 U/L Aspartate Amino Transf (AST/SGOT) 10 U/L Alanine Aminotransferase (ALT/SGPT) 14 U/L Total Bilirubin 0.2 MG/DL Sodium Level 139 MEQ/L Potassium Level 4.0 MEQ/L Chloride Level 108 MEQ/L Carbon Dioxide Level 26.2 MEQ/L Anion Gap 5 MEQ/L Estimat Glomerular Filtration Rate 111 ML/MIN Human Chorionic Gonadotropin, Quant LESS THAN 1 MIU/ML MDM Medical Decision Making Medical Screen Exam Complete: Yes Emergency Medical Condition: Yes Medical Record Reviewed: Yes Differential Diagnosis Differential includes cervicitis, PID, ovarian cyst, ectopic Narrative Course test is negative. Her white count is normal. On exam I really do not find any evidence of infection and there is really is no pelvic tenderness. I did not determine an etiology for her pain but she appears stable Diagnosis Primary Impression: Nonspecific abdominal pain Disposition: DISCHARGE HOME Condition: Stable Jeremy Smith MD Aug 19, 2017 12:47
[2017-08-19 12:54] LABS: BILIRUBIN, URINE NEG (NEG); BLOOD, URINE LARGE (NEG); GLUCOSE,URINE NEG (NEG); KETONE, URINE NEG (NEG); NITRITE,URINE NEG (NEG); PH, URINE 5.5 (5.0-8.5); URINE LEUKOCYTE ESTERASE NEG (NEG)
[2017-08-19 12:55] LABS: URINE COLOR YELLOW (YELLW/STRAW)
[2017-08-19 13:13] LABS: AMORPHOUS SEDIMENT, URINE LARGE
[2017-08-19 13:14] LABS: SQUAMOUS EPITHELIAL CELL URINE > 8 /hpf (0-5)
[2017-08-19 13:17] LABS: AUTOMATED NEUTROPHIL # 2.3 TH/MM3 (1.8-7.7); BASOPHIL # 0.1 TH/MM3 (0-0.2); BASOPHIL % 1.6 % (0.0-2.0); EOSINOPHIL # 0.5 TH/MM3 (0-0.4); EOSINOPHIL % 9.5 % (0.0-4.0); HEMOGLOBIN 13.6 GM/DL (11.6-15.3); LYMPH % 35.3 % (9.0-44.0); LYMPHOCYTE # 1.8 TH/MM3 (1.0-4.8); MEAN CELL VOLUME 94.5 FL (80.0-100.0); MEAN CORPUSCULAR HEMOGLOBIN 32.1 PG (27.0-34.0); MEAN PLATELET VOLUME 8.4 FL (7.0-11.0); MONO % 8.3 % (0.0-8.0); MONOCYTE # 0.4 TH/MM3 (0-0.9); NEUT % 45.3 % (16.0-70.0); PLATELET COUNT 213 TH/MM3 (150-450); RED BLOOD COUNT 4.23 MIL/MM3 (4.00-5.30); RED CELL DISTRIBUTION WIDTH 11.5 % (11.6-17.2); WHITE BLOOD COUNT 5.1 TH/MM3 (4.0-11.0)
[2017-08-19 13:25] LABS: CHLORIDE 108 MEQ/L (98-107); SODIUM (NA) 139 MEQ/L (136-145)
[2017-08-19 13:29] LABS: ALBUMIN 3.8 GM/DL (3.4-5.0); BICARBONATE 26.2 MEQ/L (21.0-32.0); BLOOD UREA NITROGEN 11 MG/DL (7-18); GLUCOSE,RANDOM 89 MG/DL (74-106)
[2017-08-19 13:32] LABS: ALT (GPT) 14 U/L (10-53); AST (GOT) 10 U/L (15-37); CREATININE 0.66 MG/DL (0.50-1.00); GLOMERULAR FILTRATION RATE 111 ML/MIN (>89)
[2017-08-19 13:34] LABS: TOTAL BILIRUBIN ADULT 0.2 MG/DL (0.2-1.0); TOTAL PROTEIN 7.3 GM/DL (6.4-8.2)
[2017-08-19 13:35] LABS: ALKALINE PHOSPHATASE 49 U/L (45-117)
== END 2017-08-19 14:30 | disposition home or self-care (01) ==
LOC: PHED 11:57
DX: R10.9 Unspecified abdominal pain (principal); J45.909 Unspecified asthma, uncomplicated; F17.210 Nicotine dependence, cigarettes, uncomplicated
CPT/HCPCS: 80053; 81001; 84702; 85025; 99284